=== PATIENT | male | born 1975 | race Caucasian/White ===

== ENCOUNTER 2024-11-27 11:24 | Emergency (ER) | payer OTHER ==
[~2024-11-27] VITALS: Ht 170.2 cm; Wt 79.4 kg
[2024-11-27] MEDS ORDERED: MORPHINE SULFATE 2 MG/1 ML DISP.SYRIN ONE (11:43)
[2024-11-27] MEDS ORDERED: ONDANSETRON 4 MG/2 ML VIAL ONE (11:43)
[2024-11-27 11:46] LABS: PLATELET COUNT (AUTO) 313 K/uL (152-348); RED BLOOD CELL COUNT(AUTO) 5.03 MIL/uL (4.06-5.63); RED CELL DISTRIBUTION WIDTH 14.4 % (12.1-16.2); WHITE BLOOD COUNT (AUTO) 9.5 K/uL (3.6-10.2)
[2024-11-27] MEDS: ONDANSETRON 4 MG/2 ML VIAL IV ONE (11:49)
[2024-11-27] MEDS: MORPHINE SULFATE 2 MG/1 ML DISP.SYRIN IV ONE (11:49)
[2024-11-27] MEDS: IV NORMAL SALINE 1000 ML BAG IV ONE (12:01)
[2024-11-27 12:11] LABS: ASPARTATE AMINOTRANSFERASE 19 U/L (15-37); CREATININE 0.6 mg/dL (0.6-1.3); SODIUM SERUM 141 mmol/L (136-145); TOTAL PROTEIN, SERUM 7.8 g/dL (6.4-8.2); UREA NITROGEN, BLOOD 15 mg/dL (7-18)
[2024-11-27] MEDS ORDERED: IBUP-1955 PO (13:14)
[2024-11-27 13:38] VITALS: BP 105/70
[2024-11-27 14:09] VITALS: BP 105/70; TEMP 97.6; O2SAT 97
== END 2024-11-27 14:11 | disposition home or self-care (01) ==
LOC: ER 11:24
DX: K40.90 Unilateral inguinal hernia, without obstruction or gangrene, not specified as recurrent (principal); R10.32 Left lower quadrant pain; Z60.2 Problems related to living alone
CPT/HCPCS: 99285; 74176; 96374; 96361; 96375; 80076; 80048; 83690; 85025; J2405; J2270; J7040; 36415; A4606; A4663